=== PATIENT | male | born 1960 | race Caucasian/White ===

== ENCOUNTER 2017-01-03 05:54 | Observation (INO) | payer BC ==
--- NOTE | ~2017-01-03 | TEE ---
Transesophageal Echocardiogram [address] [id number] [place]. [address] NAME: SUN DAVIES : 62 STATUS : REG REF PAT#: [id number] AGE: 56 ADM/REG DATE : 01/03/17 MR#: [id number] REPORT SERV DATE: 01/03/17 DICTATED BY: DATE: REPORT STATUS : Draft TRANSCRIBED BY: MODL DATE: 01/03/17 CHIEF COMPLAINT/REASON FOR PROCEDURE: Atrial fibrillation. PROCEDURE: Written informed consent obtained. With the assistance of my Anesthesia colleague, Mr. Davies was sedated with IV propofol. The transesophageal probe was easily placed without complications. Salient 2D echocardiographic images with color and spectral Doppler were obtained. The transesophageal probe was then withdrawn. 1. The left ventricular systolic function is normal with a visually estimated ejection fraction greater than 55%. 2. The right ventricle appears mildly dilated with preserved systolic function. 3. The left atrium appeared mildly dilated. There was no evidence of left atrial thrombus present. 4. The right atrium appeared mildly dilated. There is a prominent Chiari network at the junction of the right atrium and the inferior vena cava. No evidence of right atrial appendage thrombus is present. 5. No 2D evidence or color evidence of atrial septal defect or patent foramen ovale. 6. The mitral valve appeared to open normally. There was mild mitral regurgitation. There was no mitral stenosis visualized. 7. The tricuspid valve appeared to open normally. There was trivial tricuspid valve regurgitation present. 8. The aortic valve appeared trileaflet. There was trivial aortic valvular regurgitation present. 9. The pulmonary valve appeared grossly normal. There was no evidence of significant pulmonary valvular regurgitation present. 10.The right upper pulmonary vein and left upper pulmonary vein were interrogated with no evidence of systolic flow reversal. 11.There was no evidence of pericardial effusion. 12.The thoracic aorta had mild intimal thickening noted. IMPRESSION: 1. Normal left ventricular systolic function with a visually estimated ejection fraction greater than 55%. 2. No evidence of left atrial or left atrial appendage thrombus. 3. Prominent Chiari network noted at the junction of the right atrium and inferior vena cava. [facility] Kaycee Chow M.D. / [id number] CC: Fede Rizvi M.D. Transesophageal Echocardiogram [address] [address] NAME: SUN DAVIES : 62 STATUS : REG REF PAT#: [id number] AGE: 56 ADM/REG DATE : 01/03/17 MR#: [id number] REPORT SERV DATE: 01/03/17 DICTATED BY: DATE: REPORT STATUS : Draft TRANSCRIBED BY: MODL DATE: 01/03/17 Terrance Vargas D.O.
[~2017-01-03 05:54] MED LIST: ELIQUIS 5 MG TAB5 MG PO; FLECAINIDE150 MG PO; FLECAINIDE50 MG PO; HYZAAR1 TAB PO; LOP25 PO; NORV5 PO; SPIRO25 PO
[2017-01-03 06:39] LABS: BASOPHILS 0.1 %; BASOPHILS ABSOLUTE 0.01 10/3/uL (0.0-0.16); EOSINOPHILS 2.1 %; EOSINOPHILS ABSOLUTE 0.14 10/3/uL (0.0-0.53); HEMATOCRIT 45.1 % (40.0-51.0); HEMOGLOBIN 15.8 g/dL (13.6-17.8); IMMATURE GRANULOCYTES 0.1 %; IMMATURE GRANULOCYTES ABSOLUTE 0.01 10/3/uL (0.0-0.11); LYMPHOCYTES 42.5 %; LYMPHOCYTES ABSOLUTE 2.85 10/3/uL (0.67-4.30); MANUAL DIFF NO %; MEAN CORPUSCULAR HEMOGLOB 30.7 pg (26.0-34.0); MEAN CORPUSCULAR VOLUME 87.7 fL (80-100); MEAN PLATELET VOLUME 10.2 fL (9.2-13.0); MONOCYTES 13.4 %; NEUTROPHILS 41.8 %; NEUTROPHILS ABSOLUTE 2.79 10/3/uL (2.02-8.40); PLATELET COUNT 266 10/3/uL (150-400); RBC DISTRIBUTION WIDTH 13.2 % (12.0-16.0); RED CELL COUNT 5.14 10/6/uL (4.7-6.1); WHITE BLOOD CELLS 6.7 10/3/uL (4.5-10.5)
[2017-01-03 06:50] LABS: BUN (BLOOD UREA NITROGEN) 12 MG/DL (6-23); CALCIUM, SERUM 8.9 MG/DL (8.5-10.4); CHLORIDE, SERUM 109 MMOL/L (96-112); CO2 (CARBON DIOXIDE) 25 MMOL/L (24-34); CREATININE 0.85 MG/DL (0.70-1.30); GFR AFRICAN AMERICAN 114 ML/MIN (>=60); GFR NON AFRICAN AMERICAN 98 ML/MIN (>=60); GLUCOSE, SERUM 96 MG/DL (60-99); POTASSIUM, SERUM 4.2 MMOL/L (3.5-5.3); SODIUM, SERUM 140 MMOL/L (135-148)
[2017-01-04] MEDS ORDERED: PRILOSEC40 MG PO (07:36)
== END 2017-01-04 09:35 | disposition home or self-care (01) ==
LOC: CORLMH 05:54 → SSU1 05:58
PROVIDERS: Internal Medicine Cardiovascular Disease
DX: I48.1 Persistent atrial fibrillation (principal); G47.33 Obstructive sleep apnea (adult) (pediatric); I10 Essential (primary) hypertension; I49.5 Sick sinus syndrome; I48.0 Paroxysmal atrial fibrillation; Z79.899 Other long term (current) drug therapy; Z87.891 Personal history of nicotine dependence; Z79.01 Long term (current) use of anticoagulants; Z99.81 Dependence on supplemental oxygen
CPT/HCPCS: 80048; 82962; 85025; 85347; 93005; 93312; 93320; 93325; 93613; 93656; 93662; 96374; 96375; A9270-GY; C1732; C1759; C1769; C1781; C1894; G0378; J2250; J2370; J2405; J3010; Q9967